=== PATIENT | male | born 1995 | race Caucasian/White ===

== ENCOUNTER 2020-09-25 14:34 | Emergency (ER) | payer OTHER ==
--- NOTE | 2020-09-25 15:26 | EDM.PDOC ---
ED HPI GENERAL MEDICAL PROBLEM - General Chief Complaint: Lower Extremity Injury/Pain Stated Complaint: SORE ON LEFT LEG Time Seen by Provider: 09/25/20 15:00 Source of Information: Reports: Patient History Limitations: Reports: No Limitations - History of Present Illness INITIAL COMMENTS - FREE TEXT/NARRATIVE: This 25 yo male patient reports to the ED with a 2 day history of draining wounds to his left testicle. The patient denies any previous infections. Duration: Day(s):, Constant, Getting Worse Location: Reports: Other (left scrotum) Quality: Reports: Ache, Dull Severity: Moderate Improves with: Reports: None Worsens with: Reports: None Context: Reports: Other - Related Data Allergies Allergy/AdvReac Type Severity Reaction Status Date / Time amoxicillin Allergy Swelling Verified 03/20/19 12:34 Home Meds: Home Meds . [No Known Home Meds] 03/20/19 [History] Past Medical History - Past Health History Medical/Surgical History: Denies Medical/Surgical History HEENT History: Reports: None Cardiovascular History: Reports: None Respiratory History: Reports: None Gastrointestinal History: Reports: None Genitourinary History: Reports: None Musculoskeletal History: Reports: None Neurological History: Reports: None Psychiatric History: Reports: None Endocrine/Metabolic History: Reports: None Hematologic History: Reports: None Immunologic History: Reports: None Oncologic (Cancer) History: Reports: None Dermatologic History: Reports: None - Infectious Disease History Infectious Disease History: Reports: None - Past Surgical History Head Surgeries/Procedures: Reports: None Social & Family History - Family History Family Medical History: No Pertinent Family History - Caffeine Use Caffeine Use: Reports: Energy Drinks Review of Systems - Review of Systems Review Of Systems: Comprehensive ROS is negative, except as noted in HPI. ED EXAM, GENERAL - Physical Exam Exam: See Below Exam Limited By: No Limitations General Appearance: Alert, WD/WN, Moderate Distress Eye Exam: Bilateral Eye: EOMI, Normal Inspection, PERRL Ears: Normal External Exam, Normal Canal, Hearing Grossly Normal, Normal TMs Nose: Normal Inspection, Normal Mucosa, No Blood Throat/Mouth: Normal Inspection, Normal Lips, Normal Teeth, Normal Gums, Normal Oropharynx, Normal Voice, No Airway Compromise Head: Atraumatic, Normocephalic Neck: Normal Inspection, Supple, Non-Tender, Full Range of Motion Respiratory/Chest: No Respiratory Distress, Lungs Clear, Normal Breath Sounds, No Accessory Muscle Use, Chest Non-Tender Cardiovascular: Normal Peripheral Pulses, Regular Rate, Rhythm, No Edema, No Gallop, No JVD, No Murmur, No Rub GI/Abdominal: Normal Bowel Sounds, Soft, Non-Tender, No Organomegaly, No Distention, No Abnormal Bruit, No Mass (Male) Exam: Scrotal Swelling, Scrotum Tenderness (L), Testicular Tenderness (L) Rectal (Males) Exam: Deferred Back Exam: Normal Inspection Extremities: Normal Inspection, Normal Range of Motion, Non-Tender, Normal Capillary Refill, No Pedal Edema Neurological: Alert, Oriented, CN II-XII Intact, Normal Cognition, Normal Gait, Normal Reflexes, No Motor/Sensory Deficits Psychiatric: Normal Affect Skin Exam: Wound/Incision (left scrotal abscess with drainage) Lymphatic: No Adenopathy Course - Orders/Labs/Meds Orders: Active Orders 24 hr Category Date Time Status CULTURE WOUND [RM] Stat Lab 09/25/20 15:18 Ordered Departure - Departure Time of Disposition: 15:28 Disposition: Home, Self-Care 01 Condition: Fair Clinical Impression: Scrotal abscess - Discharge Information *PRESCRIPTION DRUG MONITORING PROGRAM REVIEWED*: Not Applicable *COPY OF PRESCRIPTION DRUG MONITORING REPORT IN PATIENT CHARLES: Not Applicable Instructions: Skin Abscess, [id number] Care Plan Goals: The patient was advised of the examination results during the visit. The patient was discharged with a script for 1) Bactrim DS to take 1 by mouth 2 times per day for 10 days and 2) Keflex (500 mg) to take 1 by mouth 4 times per day for 10 days. The patient should follow-up with his primary care facility next week for continued evaluation and treatment. If the patient has any additional symptoms or concerns, the patient should either return to the emergency department or visit his primary care facility. - My Orders Last 24 Hours: My Active Orders 09/25/20 15:18 CULTURE WOUND [RM] Stat - Assessment/Plan Last 24 Hours: My Active Orders 09/25/20 15:18 CULTURE WOUND [RM] Stat
== END 2020-09-25 15:40 | disposition home or self-care (01) ==
LOC: DL.ED 14:34
DX: N49.2 Inflammatory disorders of scrotum (principal); Z88.0 Allergy status to penicillin
CPT/HCPCS: 87070; 87077; 87186; 99283

== ENCOUNTER 2021-04-09 10:42 | Emergency (ER) | payer MEDICAID, OTHER ==
--- NOTE | 2021-04-09 12:24 | EDM.PDOC ---
Scribed by Yamileth Hagen 04/09/21 1224 for Eliezer Patel MD ED HPI GENERAL MEDICAL PROBLEM - General Chief Complaint: ENT Problem Stated Complaint: THROAT PAIN Time Seen by Provider: 04/09/21 12:13 Source of Information: Reports: Patient History Limitations: Reports: No Limitations - History of Present Illness INITIAL COMMENTS - FREE TEXT/NARRATIVE: 25 y/o M c/o sore throat and fever x 3 days. Pt is concerned he may have strep throat. No other family members have been sick No hx of strep in the past. Allergies to Amoxicillin but does not know what kind of reaction he has to the medication. Denies VARGHESE, cp, DB, abd pn, diff voiding, ear pain. Duration: Day(s): Location: Reports: Neck Quality: Reports: Sharp Improves with: Reports: Other (Tylenol) Worsens with: Reports: None Associated Symptoms: Reports: Fever/Chills - Related Data Allergies Allergy/AdvReac Type Severity Reaction Status Date / Time amoxicillin Allergy Swelling Verified 03/20/19 12:34 Home Meds: Home Meds . [No Known Home Meds] 03/20/19 [History] Past Medical History - Past Health History Medical/Surgical History: Denies Medical/Surgical History HEENT History: Reports: None Cardiovascular History: Reports: None Respiratory History: Reports: None Gastrointestinal History: Reports: None Genitourinary History: Reports: None Musculoskeletal History: Reports: None Neurological History: Reports: None Psychiatric History: Reports: None Endocrine/Metabolic History: Reports: None Hematologic History: Reports: None Immunologic History: Reports: None Oncologic (Cancer) History: Reports: None Dermatologic History: Reports: None - Infectious Disease History Infectious Disease History: Reports: None - Past Surgical History Head Surgeries/Procedures: Reports: None Social & Family History - Family History Family Medical History: No Pertinent Family History - Tobacco Use Tobacco Use Status *Q: Current Every Day Tobacco User Years of Tobacco use: 10 Packs/Tins Daily: 1 - Caffeine Use Caffeine Use: Reports: None - Recreational Drug Use Recreational Drug Use: No ED ROS ENT - Review of Systems Review Of Systems: Comprehensive ROS is negative, except as noted in HPI. ED EXAM, ENT - Physical Exam Exam: See Below Exam Limited By: No Limitations General Appearance: Alert, No Apparent Distress Ears: Normal External Exam, Normal Canal, Hearing Grossly Normal, Normal TMs Nose: Normal Inspection, Normal Mucousa, No Blood Mouth/Throat: Other (Redness and swelling of the posterior oropharynx, bilateral tonsillar exudates.) Head: Atraumatic, Normocephalic Neck: Supple, Lymphadenopathy (L) Respiratory/Chest: Lungs Clear, Normal Breath Sounds Cardiovascular: Normal Peripheral Pulses, Regular Rate, Rhythm Extremities: Normal Inspection, Normal Range of Motion, Non-Tender, No Pedal Edema, Normal Capillary Refill Skin: Warm, Dry, Intact Course - Vital Signs Last Recorded V/S: Last Vital Signs Temp 97.8 F 04/09/21 11:56 Pulse 88 04/09/21 11:56 Resp 16 04/09/21 11:56 BP 131/60 04/09/21 11:56 Pulse Ox 99 04/09/21 11:56 - Re-Assessments/Exams Free Text/Narrative Re-Assessment/Exam: 04/09/21 12:20 Pt positive for strep, will treat with Zithromax due to ammox allergy. Departure - Departure Time of Disposition: 12:21 Disposition: Home, Self-Care 01 Condition: Good Clinical Impression: Strep pharyngitis - Discharge Information *PRESCRIPTION DRUG MONITORING PROGRAM REVIEWED*: Not Applicable *COPY OF PRESCRIPTION DRUG MONITORING REPORT IN PATIENT CHARLES: Not Applicable Instructions: Strep Throat, Adult, [id number] Forms: ED Department Discharge Additional Instructions: RX: Zithromax Take medication as prescribed. Use tylenol or ibuprofen for pain as needed. Sepsis Event Note (ED) - Focused Exam Vital Signs: Vital Signs Temp Pulse Resp BP Pulse Ox 04/09/21 11:56 97.8 F 88 16 131/60 99 I have read and agree with the documentation that has been completed regarding this visit. By signing this record, I attest that the documentation was completed in my physical presence and is an accurate record of the encounter.
== END 2021-04-09 12:25 | disposition home or self-care (01) ==
LOC: DL.ED 10:42
DX: J02.0 Streptococcal pharyngitis (principal); Z88.0 Allergy status to penicillin; Z72.0 Tobacco use
CPT/HCPCS: 87430; 99283; 99284

== ENCOUNTER 2023-05-22 17:56 | Emergency (ER) | payer SELFPAY ==
[2023-05-22] MEDS ORDERED: Diphtheria,Pertussis(Acell),Tetanus Vaccine 0.5 ML Syringe IM ONE (19:57)
[2023-05-22] MEDS ORDERED: ceFAZolin 1 GM Vial IVPUSH ONE (19:59)
== END 2023-05-22 20:40 | disposition home or self-care (01) ==
LOC: DL.ED 17:56
DX: S61.432A Puncture wound without foreign body of left hand, initial encounter (principal); F17.290 Nicotine dependence, other tobacco product, uncomplicated; Z23 Encounter for immunization; Z88.0 Allergy status to penicillin; W18.30XA Fall on same level, unspecified, initial encounter; Y93.01 Activity, walking, marching and hiking
CPT/HCPCS: 73110-LT; 90471; 90715; 96374; 99282; 99283-25; J0690